=== PATIENT | female | born 1950 | race American Indian/Alaskan Native ===

== ENCOUNTER 2017-06-20 01:53 | Emergency (ER) | payer MEDICARE ==
[2017-06-20 03:51] LABS: Amorphous Crystals,Urine 1+; Bilirubin,Urine NEG (Negative); Blood,Urine NEG (Negative); Color,Urine Yellow (Yellow); Protein,Urine <15 mg/dL mg/dL (Negative); Urobilinogen,Urine < 2.0 mg/dL (<2.0)
[2017-06-20 03:52] LABS: Basophils # (Auto) 0.1 K/mm3 (0.0-0.1); Basophils % (Auto) 0.6 % (0.0-1.8); Eosinophils # (Auto) 0.1 K/mm3 (0.0-0.4); Eosinophils % (Auto) 0.5 % (0.0-4.3); Hematocrit 42.7 % (30.3-42.9); Hemoglobin 14.8 gm/dl (10.1-14.3); Lymphocytes # (Auto) 1.5 K/mm3 (1.2-5.4); Mean Corpuscular HGB Conc 35 % (30-34); Mean Corpuscular Hemoglobin 30 pg (28-32); Mean Corpuscular Volume 85 fl (79-97); Monocytes # (Auto) 0.4 K/mm3 (0.0-0.8); Monocytes % (Auto) 3.8 % (0.0-7.3); Platelet Count 257 K/mm3 (140-440); Red Blood Count 5.02 M/mm3 (3.65-5.03); Red Cell Distribution Width 15.4 % (13.2-15.2)
[2017-06-20 04:18] LABS: Alanine Aminotransferase 17 units/L (7-56); Albumin 4.4 g/dL (3.9-5); BUN/Creatinine Ratio 21; Blood Urea Nitrogen 15 mg/dL (7-17); Calcium 9.3 mg/dL (8.4-10.2); Hemolysis Index 11; Lipase 16 units/L (13-60)
--- NOTE | 2017-06-20 06:25 | Emergency Department Report ---
ED Abdominal Pain HPI - General Chief Complaint: Abdominal Pain Stated Complaint: STOMACH PAIN Time Seen by Provider: 06/20/17 06:24 Source: patient Mode of arrival: Ambulatory Limitations: No Limitations - History of Present Illness Initial Comments: The patient is a 67-year-old female with a history of partial small bowel obstruction status post partial colectomy. She complains of a somewhat diffuse abdominal pain for a day. She's had some nausea and vomited once. There is no signs of GI bleeding. He was not nauseated at the time of my encounter. She denies fever or chills. She was relatively comfortable. MD Complaint: abdominal pain -: hour(s) Location: diffuse Radiation: none Migration to: no migration Severity: mild, moderate Quality: cramping Consistency: intermittent, now resolved Improves With: nothing Worsens With: nothing Associated Symptoms: denies other symptoms, nausea, vomiting - Related Data Home Medications Medication Instructions Recorded Confirmed Last Taken B.ani/L.aci/L.grayson/L.plan/L.caro 1 each PO DAILY 07/20/13 07/02/14 02/04/14 [Probiotic Formula Capsule] Cetirizine HCl [Allergy Relief] 10 mg PO DAILY 07/20/13 07/02/14 02/04/14 Multivitamin [Multi-Vitamin Daily] 1 tab PO DAILY 02/05/14 07/02/14 02/04/14 Previous Rx's Medication Instructions Recorded Last Taken Type Aspirin EC [Aspirin Enteric Coated 325 mg PO QDAY #30 tablet 02/07/14 Unknown Rx TAB] Simvastatin [Zocor TAB] 40 mg PO QHS 30 Days tablet 02/07/14 Unknown Rx EPINEPHrine [Epipen 2-Vinicius] 0.3 mg IM ONCE PRN #1 unit 05/07/14 Unknown Rx Famotidine [Pepcid] 20 mg PO BID #6 tablet 05/07/14 Unknown Rx Diltiazem Cd [Cardizem CD] 240 mg PO QDAY #30 capsule 07/06/14 Unknown Rx Famotidine [Pepcid] 20 mg PO BID tablet 07/06/[address] [Voltaren Dr] 75 mg PO Q12H #40 tablet 10/16/14 Unknown Rx HYDROcodone/APAP 10-325 [[place] 1 each PO Q6HR PRN #20 tablet 10/16/14 Unknown Rx 10/325] predniSONE [Deltasone] 20 mg PO TID #12 tab 10/16/14 Unknown Rx traMADol [Ultram] 50 mg PO Q6HR PRN #10 tablet 06/20/17 Unknown Rx Allergies Allergy/AdvReac Type Severity Reaction Status Date / Time amoxicillin [Amoxicillin] Allergy Vomiting Verified 10/16/14 00:56 ED Review of Systems ROS: Stated complaint: STOMACH PAIN Other details as noted in HPI Constitutional: denies: chills, fever Eyes: denies: eye pain, eye discharge, vision change ENT: denies: ear pain, throat pain Respiratory: denies: cough, shortness of breath, wheezing Cardiovascular: denies: chest pain, palpitations Endocrine: no symptoms reported Gastrointestinal: as per HPI, abdominal pain, nausea, vomiting. denies: diarrhea Genitourinary: denies: urgency, dysuria, discharge Musculoskeletal: denies: back pain, joint swelling, arthralgia Skin: denies: rash, lesions Neurological: denies: headache, weakness, paresthesias Psychiatric: denies: anxiety, depression Hematological/Lymphatic: denies: easy bleeding, easy bruising ED Past Medical Hx - Past Medical History Hx Hypertension: Yes Hx Arthritis: Yes Additional medical history: high cholest, heart murmur. atrial tachycardia - Surgical History Additional Surgical History: colectomy, hysterectomy hernia repair, r) ankle, l ) knee, l) arm forehead - Social History Smoking Status: Never Smoker Substance Use Type: None - Medications Home Medications: Home Medications Medication Instructions Recorded Confirmed Last Taken Type B.ani/L.aci/L.grayson/L.plan/L.caro 1 each PO DAILY 07/20/13 07/02/14 02/04/14 History [Probiotic Formula Capsule] Cetirizine HCl [Allergy Relief] 10 mg PO DAILY 07/20/13 07/02/14 02/04/14 History Multivitamin [Multi-Vitamin Daily] 1 tab PO DAILY 02/05/14 07/02/14 02/04/14 History Aspirin EC [Aspirin Enteric Coated 325 mg PO QDAY #30 tablet 02/07/14 07/02/14 Unknown Rx TAB] Simvastatin [Zocor TAB] 40 mg PO QHS 30 Days tablet 02/07/14 07/02/14 Unknown Rx EPINEPHrine [Epipen 2-Vinicius] 0.3 mg IM ONCE PRN #1 unit 05/07/14 07/02/14 Unknown Rx Famotidine [Pepcid] 20 mg PO BID #6 tablet 05/07/14 07/02/14 Unknown Rx Diltiazem Cd [Cardizem CD] 240 mg PO QDAY #30 capsule 07/06/14 Unknown Rx Famotidine [Pepcid] 20 mg PO BID tablet 07/06/[address] [Voltaren Dr] 75 mg PO Q12H #40 tablet 10/16/14 Unknown Rx HYDROcodone/APAP 10-325 [[place] 1 each PO Q6HR PRN #20 tablet 10/16/14 Unknown Rx 10/325] predniSONE [Deltasone] 20 mg PO TID #12 tab 10/16/14 Unknown Rx traMADol [Ultram] 50 mg PO Q6HR PRN #10 tablet 06/20/17 Unknown Rx ED Physical Exam - General Limitations: No Limitations General appearance: alert, in no apparent distress, obese - Head Head exam: Present: atraumatic, normocephalic - Eye Eye exam: Present: normal appearance, PERRL, EOMI. Absent: scleral icterus - ENT ENT exam: Present: mucous membranes moist - Neck Neck exam: Present: normal inspection - Respiratory Respiratory exam: Present: normal lung sounds bilaterally. Absent: respiratory distress - Cardiovascular Cardiovascular Exam: Present: regular rate, normal rhythm. Absent: systolic murmur, diastolic murmur, rubs, gallop - GI/Abdominal GI/Abdominal exam: Present: soft, normal bowel sounds. Absent: distended, tenderness, guarding, rebound, rigid, organomegaly, mass, bruit, pulsatile mass , hernia - Extremities Exam Extremities exam: Present: normal inspection - Back Exam Back exam: Present: normal inspection. Absent: CVA tenderness (R), CVA tenderness (L) - Neurological Exam Neurological exam: Present: alert, oriented X3, CN II-XII intact, normal gait. Absent: motor sensory deficit - Psychiatric Psychiatric exam: Present: normal affect, normal mood - Skin Skin exam: Present: warm, dry, intact, normal color. Absent: rash ED Course Vital Signs 06/20/17 06/20/17 06/20/17 03:19 05:47 07:27 Temperature 97.8 F 98.7 F Pulse Rate 72 70 Respiratory 18 18 18 Rate Blood Pressure 150/95 Blood Pressure 135/80 [Left] O2 Sat by Pulse 97 100 Oximetry - Reevaluation(s) Reevaluation #1: Patient continued to be comfortable in the emergency department. On reexam she is talking on her cell phone and felt ready to go home. CT of her abdomen showed nothing nonreassuring. She will follow-up with her primary care physician at [facility]. 06/20/17 09:41 ED Medical Decision Making - Lab Data Result diagrams: 06/20/17 03:28 06/20/17 03:28 Laboratory Results - last 24 hr 06/20/17 06/20/17 06/20/17 03:28 03:28 03:30 WBC 11.8 H RBC 5.02 Hgb 14.8 H Hct 42.7 MCV 85 MCH 30 MCHC 35 H RDW 15.4 H Plt Count 257 Lymph % (Auto) 13.0 L [place] % (Auto) 3.8 Eos % (Auto) 0.5 Baso % (Auto) 0.6 Lymph # 1.5 [place] # 0.4 Eos # 0.1 Baso # 0.1 Seg Neutrophils % 82.1 H Seg Neutrophils # 9.7 H Sodium 138 Potassium 4.0 Chloride 97.0 L Carbon Dioxide 27 Anion Gap 18 BUN 15 Creatinine 0.7 Estimated GFR > 60 BUN/Creatinine Ratio 21 Glucose 124 H Calcium 9.3 Total Bilirubin 0.50 AST 26 ALT 17 Alkaline Phosphatase 111 Total Protein 7.9 Albumin 4.4 Albumin/Globulin Ratio 1.3 Lipase 16 Urine Color Yellow Urine Turbidity Clear Urine pH 7.0 Ur Specific [place] 1.018 Urine Protein <15 mg/dl Urine Glucose (UA) Neg Urine Ketones Neg Urine Blood Neg Urine Nitrite Neg Urine Bilirubin Neg Urine Urobilinogen < 2.0 Ur Leukocyte Esterase Tr Urine WBC (Auto) 2.0 Urine RBC (Auto) 1.0 U Epithel Cells (Auto) 1.0 Amorphous Crystals 1+ Laboratory Results - last 24 hr 06/20/17 06/20/17 06/20/17 03:28 03:28 03:30 WBC 11.8 H RBC 5.02 Hgb 14.8 H Hct 42.7 MCV 85 MCH 30 MCHC 35 H RDW 15.4 H Plt Count 257 Lymph % (Auto) 13.0 L [place] % (Auto) 3.8 Eos % (Auto) 0.5 Baso % (Auto) 0.6 Lymph # 1.5 [place] # 0.4 Eos # 0.1 Baso # 0.1 Seg Neutrophils % 82.1 H Seg Neutrophils # 9.7 H Sodium 138 Potassium 4.0 Chloride 97.0 L Carbon Dioxide 27 Anion Gap 18 BUN 15 Creatinine 0.7 Estimated GFR > 60 BUN/Creatinine Ratio 21 Glucose 124 H Calcium 9.3 Total Bilirubin 0.50 AST 26 ALT 17 Alkaline Phosphatase 111 Total Protein 7.9 Albumin 4.4 Albumin/Globulin Ratio 1.3 Lipase 16 Urine Color Yellow Urine Turbidity Clear Urine pH 7.0 Ur Specific [place] 1.018 Urine Protein <15 mg/dl Urine Glucose (UA) Neg Urine Ketones Neg Urine Blood Neg Urine Nitrite Neg Urine Bilirubin Neg Urine Urobilinogen < 2.0 Ur Leukocyte Esterase Tr Urine WBC (Auto) 2.0 Urine RBC (Auto) 1.0 U Epithel Cells (Auto) 1.0 Amorphous Crystals 1+ - Radiology Data Radiology results: report reviewed (CT no acute process small hernia containing fat) interpreted by me: Small left periumbilical hernia containing fat. Otherwise no acute process Critical care attestation.: If time is entered above; I have spent that time in minutes in the direct care of this critically ill patient, excluding procedure time. ED Disposition Clinical Impression: Periumbilical hernia Abdominal pain Qualifiers: Abdominal location: generalized Qualified Code(s): R10.84 - Generalized abdominal pain Disposition: TO HOME OR SELFCARE Is pt being admited?: No Does the pt Need Aspirin: No Condition: Stable Instructions: Abdominal Pain (ED), Ventral Hernia (ED) Additional Instructions: Follow-up with your primary care physician at [facility]. Return if any acute pain or vomiting fever or chills as needed. Prescriptions: traMADol [Ultram] 50 mg PO Q6HR PRN #10 tablet PRN Reason: Pain Referrals: usual, primary care [Other] - 3-5 Days Time of Disposition: 09:45
[2017-06-20] MEDS ORDERED: ZOFRAN IV ONE (06:53)
[2017-06-20] MEDS ORDERED: NACL 0.9% 1000 ML 1,000 ML IV ONE (06:53)
[2017-06-20] MEDS ORDERED: MORPHINE IV ONE (06:53)
[2017-06-20] MEDS ORDERED: NACL ONE (06:55)
--- NOTE | 2017-06-20 09:30 | Cat Scan Report ---
CT ABDOMEN PELVIS WITH CONTRAST: HISTORY: abdominal pain. COMPARISON: 07/21/13. TECHNIQUE: Helical CT in 1.25mm intervals following IV contrast. Sagittal and coronal reconstructions. FINDINGS: Lung bases: Mild bibasilar atelectasis. Normal heart size. Liver: Normal. Biliary system: Normal. Pancreas: Normal. Spleen: Normal. Kidneys/ureters/bladder: Normal. Adrenal glands: Normal. Aorta: Normal. Intestines: Near-total colectomy changes are suspected. There is no evidence for bowel obstruction or focal inflammation. A small left paraumbilical ventral wall defect measuring 2.3 cm is identified containing fat. No bowel loops are incorporated. Appendix: Absent. Pelvic viscera: Hysterectomy. Ascites: None. Adenopathy: None. Musculoskeletal: Mild lumbar spondylosis. No fracture or suspicious bony lesion. IMPRESSION: No acute inflammatory process is identified. Surgical changes as described. Small left paraumbilical hernia containing fat.
[2017-06-20 10:19] VITALS: BP 133/72
== END 2017-06-20 10:17 | disposition home or self-care (01) ==
LOC: ED 01:53
DX: K42.9 Umbilical hernia without obstruction or gangrene (principal); I10 Essential (primary) hypertension; M19.90 Unspecified osteoarthritis, unspecified site; E78.00 Pure hypercholesterolemia, unspecified; Z79.82 Long term (current) use of aspirin; Z88.1 Allergy status to other antibiotic agents
CPT/HCPCS: 36415; 74177; 80053; 81001; 83690; 85025; 96361; 96374; 96375; 99284; J2270; J2405; J7030; Q9967

== ENCOUNTER 2021-08-24 20:58 | Emergency (ER) | payer MEDICARE | END 2021-08-24 23:30 | disposition left against medical advice (07) | LOC: ED 20:58 | DX: I10 Essential (primary) hypertension (principal); Z53.21 Procedure and treatment not carried out due to patient leaving prior to being seen by health care provider ==